=== PATIENT | female | born 1990 | race Two or more races ===

== ENCOUNTER 2024-08-17 11:38 | Emergency (ER) | payer OTHER ==
[~2024-08-17] VITALS: Ht 170.2 cm; Wt 77.3 kg
[2024-08-17 11:44] VITALS: BP 108/69; PULSE 67; RESP 16; TEMP 98.2; O2SAT 97
[2024-08-17] MEDS ORDERED: FLUO-342 PO ×2 (11:44→12:06)
[2024-08-17] MEDS ORDERED: LAMO25TA36 PO (12:06)
== END 2024-08-17 12:17 | disposition home or self-care (01) ==
LOC: EMS 11:38
DX: F31.9 Bipolar disorder, unspecified (principal); Z76.0 Encounter for issue of repeat prescription
CPT/HCPCS: 99281; Z7502

== ENCOUNTER 2025-04-20 11:40 | Emergency (ER) | payer OTHER ==
[~2025-04-20] VITALS: Ht 170.2 cm; Wt 84.1 kg
[~2025-04-20 11:40] MED LIST: FLUO-342 PO; LAMO25TA36 PO
[2025-04-20 11:44] VITALS: BP 136/97; PULSE 77; RESP 16; TEMP 98.2; O2SAT 97
[2025-04-20 11:49] LABS: COVID AG,FIA SOURCE NASAL SWAB
[2025-04-20 12:18] LABS: INFLUENZA TYPE A NEGATIVE FOR TYPE A (NEGATIVE); INFLUENZA TYPE B NEGATIVE FOR TYPE B (NEGATIVE); SARS-COV2 (COVID) ANTIGEN,FIA Negative (Negative)
[2025-04-20] MEDS ORDERED: BENZ-227 PO (12:52)
[2025-04-20] MEDS: BENZONATATE 100 MG CAPSULE PO ONE (12:54)
[2025-04-20] MEDS: IBUPROFEN 400 MG TABLET PO ONE (12:54)
== END 2025-04-20 13:12 | disposition home or self-care (01) ==
LOC: EMS 11:41
DX: J06.9 Acute upper respiratory infection, unspecified (principal); B97.89 Other viral agents as the cause of diseases classified elsewhere; R05.9 Cough, unspecified; Z76.0 Encounter for issue of repeat prescription; F31.9 Bipolar disorder, unspecified; Z79.899 Other long term (current) drug therapy; Z20.822 Contact with and (suspected) exposure to COVID-19
CPT/HCPCS: 87804; 99283